=== PATIENT | male | born 1965 | race Caucasian/White ===

== ENCOUNTER 2016-08-31 02:13 | Inpatient (IN) | payer SELFPAY ==
[~2016-08-31] VITALS: Ht 177.8 cm; Wt 95.9 kg
[2016-08-31 03:25] VITALS: BP 119/81
[2016-08-31 08:33] VITALS: BP 135/87
[2016-08-31] MEDS: RisperiDONE 2 MG TABLET PO SCH ×2 (11:23→16:10)
[2016-08-31 16:06] VITALS: BP 126/70
[2016-09-01 00:05] VITALS: BP 101/62
[2016-09-01 08:15] LABS: BASOPHILS % (AUTO) 0.4 % (0.0-2.0); EOSINOPHILS % (AUTO) 5.3 % (1.0-6.0); HEMATOCRIT 37.7 % (41-53); HEMOGLOBIN 12.2 g/dL (13.5-17.5); LYMPHOCYTES # (AUTO) 1.4 K/uL (1.0-4.8); LYMPHOCYTES % (AUTO) 29.7 % (22.0-44.0); MEAN CORPUSCULAR HEMOGLOBIN 30.9 pg (26.0-34.0); MEAN CORPUSCULAR HGB CONC 32.4 G/dL (31.0-37.0); MEAN CORPUSCULAR VOLUME 96 fL (80-100); MONOCYTES # (AUTO) 0.4 K/uL (0.1-1.0); NEUTROPHILS # (AUTO) 2.7 K/uL (1.8-7.7); NEUTROPHILS % (AUTO) 56.6 % (40.0-70.0); PLATELET COUNT (AUTO) 196 K/uL (150-450); RED BLOOD CELL COUNT(AUTO) 3.95 MIL/uL (4.50-5.90); RED CELL DISTRIBUTION WIDTH 14.9 % (11.5-14.5); WHITE BLOOD COUNT (AUTO) 4.7 K/uL (4.5-11.0)
[2016-09-01 08:59] LABS: ALANINE AMINOTRANSFERASE 29 U/L (12-78); ALBUMIN 2.9 g/dL (3.4-5.0); ANION GAP 8 mmol/L (8-16); ASPARTATE AMINOTRANSFERASE 29 U/L (15-37); BILIRUBIN,TOTAL 0.3 mg/dL (0.1-1.0); CALCIUM, TOTAL 8.7 mg/dL (8.8-10.5); CARBON DIOXIDE 27 mmol/L (22-29); CHLORIDE 102 mmol/L (98-107); CREATININE 0.66 mg/dL (0.60-1.30); GLOMERULAR FILTR. RATE CALC > 60 mL/min (>60); POTASSIUM 3.8 mmol/L (3.5-5.1); SODIUM SERUM 137 mmol/L (136-145); TOTAL PROTEIN, SERUM 6.1 g/dL (6.4-8.2); UREA NITROGEN, BLOOD 8 mg/dL (7-18)
[2016-09-01] MEDS: RisperiDONE 2 MG TABLET PO SCH ×2 (09:04→16:58)
[2016-09-01 09:44] VITALS: BP 97/57
[2016-09-01 16:00] VITALS: BP 120/65
[2016-09-02 02:56] VITALS: BP 129/78
[2016-09-02 08:27] LABS: ALANINE AMINOTRANSFERASE 26 U/L (12-78); ALBUMIN 2.9 g/dL (3.4-5.0); ANION GAP 7 mmol/L (8-16); ASPARTATE AMINOTRANSFERASE 20 U/L (15-37); BILIRUBIN,TOTAL 0.2 mg/dL (0.1-1.0); CALCIUM, TOTAL 8.7 mg/dL (8.8-10.5); CARBON DIOXIDE 27 mmol/L (22-29); CHLORIDE 103 mmol/L (98-107); CREATININE 0.68 mg/dL (0.60-1.30); GLOMERULAR FILTR. RATE CALC > 60 mL/min (>60); SODIUM SERUM 137 mmol/L (136-145); UREA NITROGEN, BLOOD 11 mg/dL (7-18)
[2016-09-02 08:28] VITALS: BP 125/62
[2016-09-02 08:29] LABS: BASOPHILS % (AUTO) 0.5 % (0.0-2.0); EOSINOPHILS % (AUTO) 5.4 % (1.0-6.0); HEMATOCRIT 37.3 % (41-53); HEMOGLOBIN 12.2 g/dL (13.5-17.5); LYMPHOCYTES # (AUTO) 1.3 K/uL (1.0-4.8); LYMPHOCYTES % (AUTO) 28.4 % (22.0-44.0); MEAN CORPUSCULAR HEMOGLOBIN 30.9 pg (26.0-34.0); MEAN CORPUSCULAR HGB CONC 32.6 G/dL (31.0-37.0); MEAN CORPUSCULAR VOLUME 95 fL (80-100); MONOCYTES # (AUTO) 0.3 K/uL (0.1-1.0); MONOCYTES % (AUTO) 7.5 % (2.0-9.0); NEUTROPHILS # (AUTO) 2.7 K/uL (1.8-7.7); NEUTROPHILS % (AUTO) 58.2 % (40.0-70.0); PLATELET COUNT (AUTO) 207 K/uL (150-450); RED BLOOD CELL COUNT(AUTO) 3.93 MIL/uL (4.50-5.90); RED CELL DISTRIBUTION WIDTH 14.7 % (11.5-14.5); WHITE BLOOD COUNT (AUTO) 4.7 K/uL (4.5-11.0)
[2016-09-02] MEDS: RisperiDONE 2 MG TABLET PO SCH ×2 (09:35→17:19)
[2016-09-02 16:19] VITALS: BP 118/72
[2016-09-02] MEDS: ZOLPIDEM TARTRATE 10 MG TABLET PO PRN (21:47)
[2016-09-03 04:08] VITALS: BP 113/83
[2016-09-03 08:12] VITALS: BP 124/83
[2016-09-03] MEDS: RisperiDONE 2 MG TABLET PO SCH ×2 (08:35→17:08)
[2016-09-03 16:40] VITALS: BP 126/78
[2016-09-03] MEDS: ZOLPIDEM TARTRATE 10 MG TABLET PO PRN (21:03)
[2016-09-04 06:17] VITALS: BP 131/83
[2016-09-04] MEDS: RisperiDONE 2 MG TABLET PO SCH ×2 (08:15→16:16)
[2016-09-04 08:23] VITALS: BP 134/65
[2016-09-04] MEDS: QUEtiapine FUMARATE 100 MG TABLET PO PRN (14:02)
[2016-09-04] MEDS: LORazepam 2 MG TABLET PO PRN (14:02)
[2016-09-04 16:10] VITALS: BP 128/73
[2016-09-04] MEDS: ZOLPIDEM TARTRATE 10 MG TABLET PO PRN (20:19)
[2016-09-05 00:26] VITALS: BP 131/65
[2016-09-05] MEDS: RisperiDONE 2 MG TABLET PO SCH ×2 (08:02→16:44)
[2016-09-05 08:40] VITALS: BP 122/65
[2016-09-05] MEDS: LORazepam 2 MG TABLET PO PRN (12:19)
[2016-09-05] MEDS: QUEtiapine FUMARATE 100 MG TABLET PO PRN (12:19)
[2016-09-05 16:37] VITALS: BP 117/67
[2016-09-05] MEDS: ZOLPIDEM TARTRATE 10 MG TABLET PO PRN (21:08)
[2016-09-06 00:10] VITALS: BP 110/62
[2016-09-06] MEDS: LORazepam 2 MG TABLET PO PRN ×2 (00:17→08:30)
[2016-09-06 08:06] VITALS: BP 128/82
[2016-09-06] MEDS: RisperiDONE 2 MG TABLET PO SCH (08:30)
[2016-09-06] MEDS ORDERED: RISP2 PO (12:35)
== END 2016-09-06 14:15 | disposition home or self-care (01) | DRG 885 ==
LOC: B2S 03:04 → EDSTATUS 03:11
PROVIDERS: ADMIT Psychiatry & Neurology Child & Adolescent Psychiatry; ATTEND Psychiatry & Neurology Child & Adolescent Psychiatry
DX: F20.0 Paranoid schizophrenia (principal); Z59.0 Homelessness